=== PATIENT | male | born 1975 | race Caucasian/White ===

== ENCOUNTER 2022-03-08 09:19 | Day surgery (SDC) | payer OTHER ==
[2022-03-07 13:11] VITALS: BMI 28.8
[2022-03-08] MEDS ORDERED: AFRIN NASAL MIST 15 ML BOT ONE ×3 (09:44→12:09)
[2022-03-08] MEDS ORDERED: Fentanyl 100 MCG/2 ML VIAL ONE (11:48)
[2022-03-08] MEDS ORDERED: EPINEPHrine 1 MG/ML AMP ONE ×2 (12:05→12:06)
[2022-03-08] MEDS ORDERED: Lidocaine 1% w/Epinephrine 1:100K 20 ML VIAL ONE (12:05)
[2022-03-08] MEDS ORDERED: Ketorolac Tromethamine 30 MG/ML VIAL ONE (12:38)
[2022-03-08] MEDS ORDERED: PROPOFOL 200 MG/20 ML VIAL ONE (12:38)
[2022-03-08] MEDS ORDERED: Lidocaine 1% PF 5 ML VIAL ONE (12:38)
[2022-03-08] MEDS ORDERED: Rocuronium Bromide 10 MG/ML (10ML VIAL) ONE (12:38)
[2022-03-08] MEDS ORDERED: Glycopyrrolate 0.2 MG/ML 5 ML SYRINGE ONE (12:38)
[2022-03-08] MEDS ORDERED: Dexamethasone 20 MG/5 ML VIAL ONE (12:38)
[2022-03-08] MEDS ORDERED: Ondansetron PF 4 MG/2 ML Vial ONE (12:38)
[2022-03-08] MEDS ORDERED: Bacitracin Zinc Ointment 30 gm TUBE ONE (13:19)
== END 2022-03-08 14:59 | disposition home or self-care (01) ==
LOC: SDC 09:19
PROVIDERS: ATTEND Specialist
PROC: 09BT8ZZ Excision of Left Frontal Sinus, Via Natural or Artificial Opening Endoscopic (ICD-10-PCS; principal; 2022-03-08)
PROC: 099X8ZZ Drainage of Left Sphenoid Sinus, Via Natural or Artificial Opening Endoscopic (ICD-10-PCS; principal; 2022-03-08)
PROC: 099 Ear, Nose, Sinus, Drainage (ICD-10-PCS; principal; 2022-03-08)
PROC: 09TV8ZZ Resection of Left Ethmoid Sinus, Via Natural or Artificial Opening Endoscopic (ICD-10-PCS; principal; 2022-03-08)
PROC: 09BR8ZZ Excision of Left Maxillary Sinus, Via Natural or Artificial Opening Endoscopic (ICD-10-PCS; principal; 2022-03-08)
DX: J32.4 Chronic pansinusitis (principal); L03.213 Periorbital cellulitis; J34.3 Hypertrophy of nasal turbinates; I10 Essential (primary) hypertension; F17.210 Nicotine dependence, cigarettes, uncomplicated; Z79.899 Other long term (current) drug therapy
CPT/HCPCS: 87070; 87076; 87205; 93005; 93010; J0171; J1100; J1885; J2405; J2704; J3010